=== PATIENT | female | born 1935 | race Caucasian/White ===

== ENCOUNTER 2017-11-05 11:04 | Inpatient (IN) | END 2017-11-06 18:42 | disposition home health service (06) | DRG 291 ==

== ENCOUNTER 2018-04-26 14:43 | Inpatient (IN) | END 2018-05-10 13:24 | disposition home or self-care (01) | DRG 308 ==

== ENCOUNTER 2018-05-13 07:28 | Inpatient (IN) | END 2018-05-18 14:35 | DRG 308 ==